=== PATIENT | male | born 1965 | race African-American/Black ===

== ENCOUNTER 2016-12-05 19:05 | Emergency (ER) | payer OTHER ==
[2016-12-05 19:18] VITALS: BP 148/98
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
--- NOTE | 2016-12-05 20:58 | US ---
Left lower extremity deep venous ultrasound: Duplex and color flow imaging was obtained of the left common femoral, greater saphenous, superficial femoral, popliteal, posterior tibial and peroneal veins. Findings: Mild amount of subcutaneous edema is noted within the lower extremity below the knee. Normal phasic flow, augmentation and compression is seen within the deep veins. Impression: 1. Subcutaneous edema within the lower extremity. 2. No findings of deep venous thrombosis are seen within the left lower extremity. Diagnostic code #2
[2016-12-05] MEDS ORDERED: Levofloxacin 500 MG Tab PO STA (22:15)
--- NOTE | 2016-12-06 09:06 | CR ---
Left knee: Four views of the left knee were obtained. Multiple well-corticated bony densities are seen off the superior patella which appear to be old. Mild soft tissue swelling is seen. Minimal spurring is noted off the patellofemoral joint. No joint effusion is seen. No acute fracture or other bony abnormality is identified. Impression: 1. Soft tissue swelling seen anteriorly. 2. Mild degenerative change is seen. 3. Bony densities above the patella which appear to be old and likely due to old trauma. Diagnostic code #3
== END 2016-12-05 22:37 | disposition home or self-care (01) ==
LOC: JD.ED 19:05
DX: M70.42 Prepatellar bursitis, left knee (principal); I10 Essential (primary) hypertension; Z98.1 Arthrodesis status; X58.XXXA Exposure to other specified factors, initial encounter; Y93.I9 Activity, other involving external motion
CPT/HCPCS: 73562; 87641; 93971; 99284; A9270; 99283

== ENCOUNTER 2021-06-18 06:14 | Day surgery (SDC) | payer BC ==
[~2021-06-18 06:14] MED LIST: Acetaminophen 325 MG Tab PO SCH; Lactated Ringers 1,000 ML IV SCH; Lidocaine 1%/Sod Bicarbonate in NS 8.4% 1 ML Syringe IDERM PRN; Pregabalin 25 MG Cap PO SCH; Sodium Chloride 0.9% 10 ML Syringe FLUSH SCH; oxyCODONE ER 10 MG TAB.ER PO SCH
[2021-06-18] MEDS ORDERED: Propofol 200 MG/20 ML SDV ONE ×2 (06:23→08:23)
[2021-06-18] MEDS ORDERED: fentaNYL 100 MCG/2 ML SDV ONE (06:24)
[2021-06-18] MEDS ORDERED: Midazolam 1 MG/ML 2 ML SDV ONE ×2 (06:24→07:28)
[2021-06-18] MEDS ORDERED: ceFAZolin 1 GM Vial ONE (06:26)
[2021-06-18] MEDS ORDERED: Lactated Ringers 1,000 ML ONE ×2 (07:29→08:55)
[2021-06-18] MEDS ORDERED: HYDROmorphone 0.5 MG/0.5 ML Syringe IVPUSH PRN (07:48)
[2021-06-18] MEDS ORDERED: fentaNYL 100 MCG/2 ML SDV IVPUSH PRN (07:48)
[2021-06-18] MEDS ORDERED: Ondansetron 4 MG/2 ML SDV IVPUSH PRN (07:48)
[2021-06-18] MEDS: Morphine 8 MG, EPINEPHrine 0.3 MG, Cefuroxime 750 MG, Ketorolac 30 MG, Sodium Chloride ... PRN ×10 (08:15→08:41)
[2021-06-18] MEDS: Vancomycin 1 GM SDV ONE ×2 (08:15→08:42)
[2021-06-18] MEDS ORDERED: Ondansetron 4 MG/2 ML SDV ONE (08:52)
[2021-06-18] MEDS ORDERED: Ketorolac 30 MG/ML SDV ONE (08:53)
[2021-06-18] MEDS ORDERED: oxyCODONE 5 MG Tab PO PRN (11:18)
[2021-06-18 12:04] VITALS: PULSE 49
[2021-06-18 12:48] VITALS: BP 111/75
== END 2021-06-18 13:47 | disposition home or self-care (01) ==
LOC: JD.SDS 06:14
PROVIDERS: ATTEND Orthopaedic Surgery
DX: M16.12 Unilateral primary osteoarthritis, left hip (principal); I10 Essential (primary) hypertension; F17.210 Nicotine dependence, cigarettes, uncomplicated; Z79.899 Other long term (current) drug therapy; Z98.890 Other specified postprocedural states
CPT/HCPCS: 27130; 36415; 73501; 86850; 86900; 86901; 97110; 97116; 97161; A9270; C1713; C1776; J0171; J0690; J0697; J1885; J2250; J2270; J2405; J2704; J3010; J3370; J7120; 01214

== ENCOUNTER 2022-12-25 14:17 | Emergency (ER) | payer OTHER, BC ==
[2022-12-25 14:31] VITALS: BP 145/98; PULSE 104
== END 2022-12-25 15:45 | disposition home or self-care (01) ==
LOC: JD.ED 14:17
DX: S40.012A Contusion of left shoulder, initial encounter (principal); S70.02XA Contusion of left hip, initial encounter; I10 Essential (primary) hypertension; Z79.01 Long term (current) use of anticoagulants; V29.99XA Rider (driver) (passenger) of other motorcycle injured in unspecified traffic accident, initial encounter
CPT/HCPCS: 73030-26-LT; 73030-LT; 73502-26-LT; 73502-LT; 99282; 99283